=== PATIENT | female | born 1995 | race Caucasian/White ===

== ENCOUNTER 2016-09-06 14:59 | Emergency (ER) | payer OTHER ==
[2016-09-06] MEDS ORDERED: TDAP ADULT 0.5 ML INJ (BOOSTRIX) IM ONE (15:10)
--- NOTE | 2016-09-06 15:13 | EDPHY ---
H & P Time Seen by Provider: 09/06/16 15:01 HPI/ROS: HPI Head injury, scalp laceration. 20-year-old female by ambulance from work. She was in her work break area locker room. She reports she opened the locker. She reports that she kneeled down to get something off the floor. She stood up and hit her head on the door of the locker. She sustained a laceration midline forehead at her hairline. No loss of consciousness. She has not had any nausea or vomiting. She denies any significant headache. No neck pain. No numbness or weakness in her extremities. No other complaints. The patient reports that last tetanus shot was over 10 years ago. ROS: Constitutional: No fever, no chills. No weakness. Eyes: No discharge. No changes in vision. Respiratory: No cough. No shortness of breath. Cardiac: No chest pain, no palpitations. Gastrointestinal: No abdominal pain, no vomiting, no diarrhea. Musculoskeletal: No back pain. No neck pain. Denies extremity pain. Skin: No rashes. As above. Neurological: No headache. No focal weakness or altered sensation. Past medical history: Asthma. She takes albuterol by [facility] for this. Social history: By herself. Nonsmoker. Physical Exam: General Appearance: Alert, no distress. This patient is responding to questions appropriately and in full sentences. This patient appears well- hydrated and well-nourished. Head: Normocephalic atraumatic except for a 2.5 cm non gaping linear laceration midline forehead at the hairline. No bony step-off or crepitus on palpation of this area. Face: Facial bones are stable on palpation. Eyes: Pupils equal and round and reactive to light, no pallor or injection. No lid erythema or edema. ENT, Mouth: Mucous membranes moist. Dentition is intact. No malocclusion of the jaw. No tongue lacerations or abrasions. Pharynx is clear. The bilateral nasal canals are clear. No septal hematoma. Respiratory: There are no retractions, lungs are clear to auscultation with good air movement bilaterally. Chest wall is stable to AP and lateral palpation. Cardiovascular: Regular rate and rhythm. No murmur. Gastrointestinal: Abdomen is soft and nontender, no masses, bowel sounds normal. Neurological: Motor sensory function is intact. Cranial nerves are normal. Cerebellar function intact. Skin: Warm and dry, no rashes. No lacerations, abrasions or contusions. Musculoskeletal: Neck is supple and nontender. The trachea is midline. No midline cervical, thoracic, lumbar or sacral tenderness on palpation. No flank tenderness on palpation. Extremities are symmetrical, full range of motion. All joints in the bilateral upper and bilateral lower extremities range without pain or impingement. No tenderness on palpation of the long bones in the bilateral upper and bilateral lower extremities. Psychiatric: No agitation. No depression. Database: EKG: Imaging: Procedures: Procedure: Laceration repair. Verbal consent was obtained from the patient. The 2.5 cm laceration on the midline upper forehead at the hairline was anesthetized in the usual fashion. The wound was irrigated, draped and explored to its base with a gloved finger. There were no deep structures involved. No foreign body was identified. The wound was repaired with 4, 5.0 Prolene sutures placed in interrupted fashion. The wound repair was tolerated well and there were no complications. The procedure was performed by myself. Emergency department course: Patient given Tdap Boostrix. After suture repair as above, wound care was discussed with the patient. Head injury precautions were reviewed. She feels comfortable going home. I feel she is safe for discharge. Follow-up through workmen's comp was discussed with her. All of her questions were answered. She was discharged from the emergency department in good condition. Differential Diagnosis: The differential diagnosis on this patient includes but is not limited to scalp laceration, minor head injury. Skull fracture, traumatic brain injury, cervical spine injury, other significant traumatic injury unlikely. This represents a partial list of diagnoses considered. These considerations are based on history , physical exam, past history, reassessment and diagnostic testing. Smoking Status: Never smoked Constitutional: Initial Vital Signs Temperature (C) 36.4 C 09/06/16 15:00 Heart Rate 82 09/06/16 15:00 Respiratory Rate 16 09/06/16 15:00 Blood Pressure 116/78 09/06/16 15:00 O2 Sat (%) 98 09/06/16 15:00 O2 Delivery Mode Room Air Allergies/Adverse Reactions: aloe vera Allergy (Verified 07/29/16 00:01) ARAGON PEPPERS Allergy (Uncoded 12/25/15 01:26) Home Medications: Medication Instructions Recorded Albuterol 07/29/16 Hydrocodone/APAP 5/325 [[place] 1 - 2 tab PO Q6H PRN #16 tab 07/29/16 5/325 (*)] MDM/Departure - MDM Medications Given: Discontinued Medications Diphtheria/Tetanus/Acell Pertussis (Boostrix) 0.5 ml IM .ONCE ONE Stop: 09/06/16 15:11 Last Admin: 09/06/16 15:29 Dose: 0.5 ml - Depart Disposition: Home, Routine, Self-Care Clinical Impression: Head injury, Laceration of scalp Condition: Good Instructions: Head Injury (ED), Laceration (ED), Care For Your Stitches (ED) Additional Instructions: Read and follow provided instructions. Follow-up with your primary care physician or workman's Comp physician in 1-2 days for re-evaluation. Sutures are to be removed in 7 days. Ibuprofen dosin mg every 6 hours with meals for the next 3 days only. Return to the emergency department for worsening headache, confusion, nausea or vomiting, bleeding or other serious concerns. Referrals: Patient,NotPresent [Unknown] - As per Instructions
[2016-09-06 15:48] VITALS: BP 116/78; PULSE 82; RESP 16; TEMP 97.5; O2SAT 98
== END 2016-09-06 15:48 | disposition home or self-care (01) ==
LOC: EDBD → EDUNIT#
PROC: 0HQ0XZZ Repair Scalp Skin, External Approach (ICD-10-PCS; principal; 2016-09-06)
DX: S01.01XA Laceration without foreign body of scalp, initial encounter (principal); J45.909 Unspecified asthma, uncomplicated; Z23 Encounter for immunization; W22.8XXA Striking against or struck by other objects, initial encounter; Y92.69 Other specified industrial and construction area as the place of occurrence of the external cause; Y99.0 Civilian activity done for income or pay; Y93.89 Activity, other specified